=== PATIENT | male | born 1995 | race Caucasian/White ===

== ENCOUNTER 2020-02-11 19:33 | Emergency (ER) | payer SELFPAY ==
[~2020-02-11] VITALS: Ht 182.9 cm; Wt 67.5 kg
[2020-02-11] MEDS ORDERED: FLUORESCEIN OPHTHALMIC 1 MG STRIP ONE (20:09)
[2020-02-11] MEDS ORDERED: PROPARACAINE OPHTH 0.5%, 15ML ONE (20:09)
[2020-02-11 20:11] VITALS: BP 104/65
[2020-02-11] MEDS ORDERED: PROPARACAINE OPHTH 0.5%, 15ML EACHEYE ONE (20:30)
[2020-02-11] MEDS ORDERED: FLUORESCEIN OPHTHALMIC 1 MG STRIP EACHEYE ONE (20:30)
== END 2020-02-11 20:38 | disposition home or self-care (01) ==
LOC: ED 20:15
DX: H10.023 Other mucopurulent conjunctivitis, bilateral (principal); F17.210 Nicotine dependence, cigarettes, uncomplicated
CPT/HCPCS: 99283; 99406